=== PATIENT | male | born 1950 | race Caucasian/White ===

== ENCOUNTER → 2017-12-12 | Outpatient (CLI) | payer MEDICARE ==
[2017-12-12 08:43] LABS: BASO # 0.1 (0.0-0.2); BASO % 0.5 % (0.0-2.0); EOS # 0.7 (0.0-0.7); EOS % 7.5 % (0-4.0); GRAN # 5.9 (1.4-6.5); GRAN % 61.9 % (42.2-75.2); HEMATOCRIT 37.6 % (42.0-52.0); HEMOGLOBIN 12.7 g/dl (13.5-18.0); LYMPH # 2.1 (1.2-3.4); LYMPH % 22.2 % (20.0-51.0); MEAN CELL VOLUME 93 fl (80.0-100.0); MEAN CORPUSCULAR HEMOGLOBIN 31 pg (27.0-31.0); MEAN CORPUSCULAR HGB CONC 34 g/dl (33.0-37.0); MEAN PLATELET VOLUME 9.5 fl (7.4-10.4); MONO # 0.7 (0.1-0.6); MONO % 7.3 % (1.7-9.3); PLATELET COUNT 217 K/mm3 (130-400); RED BLOOD COUNT 4.06 M/mm3 (4.20-5.60); REDCELL DISTRIBUTION WIDTH-CV 13.3 % (11.5-14.5)
[2017-12-12 08:50] LABS: INR 0.9 (0.8-3.0); PROTHROMBIN TIME 10.1 SECONDS (9.7-12.8)
[2017-12-12 08:56] LABS: ALBUMIN 3.7 gm/dL (3.5-5.0); BILIRUBIN,TOTAL 0.5 mg/dL (0.0-1.0); CALCIUM 8.9 mg/dL (8.4-10.2); CREATININE, serum 2.29 mg/dL (0.66-1.25); POTASSIUM 5.1 mmol/L (3.4-5.0); TOTAL PROTEIN 7.3 gm/dL (6.4-8.2)
[2017-12-12 23:38] LABS: HEPATITIS B SURFACE ANTIBODY 2.6 (()); HEPATITIS B SURFACE ANTIGEN Negative (Negative)
[2017-12-14 19:41] LABS: ALPHA 1 ANTITRYPSIN TOTAL 145 mg/dL (())
== END ==
LOC: COL.RAD 07:42
PROVIDERS: Physician Assistant
DX: B19.20 Unspecified viral hepatitis C without hepatic coma (principal); E11.00 Type 2 diabetes mellitus with hyperosmolarity without nonketotic hyperglycemic-hyperosmolar coma (NKHHC); N28.1 Cyst of kidney, acquired; Z79.4 Long term (current) use of insulin

== ENCOUNTER 2018-04-26 07:24 | Outpatient (CLI) | payer MEDICARE ==
[~2018-04-26] VITALS: Ht 175.3 cm; Wt 75.0 kg
[2018-04-26] VITALS (37 sets, daily range): BP systolic 128–184; BP diastolic 71–103; PULSE 67–90; TEMP 97.5
[2018-04-26 08:22] LABS: BASO # 0.1 (0.0-0.2); BASO % 0.7 % (0.0-2.0); EOS # 0.5 (0.0-0.7); EOS % 6.9 % (0-4.0); GRAN # 4.4 (1.4-6.5); GRAN % 62.2 % (42.2-75.2); HEMATOCRIT 38.5 % (42.0-52.0); LYMPH # 1.4 (1.2-3.4); LYMPH % 19.2 % (20.0-51.0); MEAN CELL VOLUME 95 fl (80.0-100.0); MEAN CORPUSCULAR HEMOGLOBIN 32 pg (27.0-31.0); MEAN CORPUSCULAR HGB CONC 34 g/dl (33.0-37.0); MONO # 0.8 (0.1-0.6); MONO % 10.6 % (1.7-9.3); PLATELET COUNT 178 K/mm3 (130-400); RED BLOOD COUNT 4.07 M/mm3 (4.20-5.60); REDCELL DISTRIBUTION WIDTH-CV 13.4 % (11.5-14.5)
[2018-04-26] MEDS ORDERED: PRINIVIL20 MG PO (08:41)
[2018-04-26 08:42] LABS: INR 0.9 (0.8-3.0)
[2018-04-26] MEDS ORDERED: NORVASC 5MG5 MG/TAB PO (08:56)
[2018-04-26] MEDS ORDERED: ASPIRIN 32325 MG/TAB PO (08:57)
[2018-04-26] MEDS ORDERED: COREG12.5 MG PO (08:58)
[2018-04-26] MEDS ORDERED: [UNRECOGNIZED DRUG - OTHER] TOP (08:59)
[2018-04-26] MEDS ORDERED: HARVONI PO (09:02)
[2018-04-26] MEDS ORDERED: NOVOLIN 70/30 710 ML SQ (09:03)
== END 2018-04-26 18:23 | disposition home or self-care (01) ==
LOC: COL.RAD 07:24
PROVIDERS: Radiology Diagnostic Radiology
DX: N17.9 Acute kidney failure, unspecified (principal); N04.9 Nephrotic syndrome with unspecified morphologic changes
CPT/HCPCS: J0360; J2250; J3010

== ENCOUNTER → 2019-11-04 | Outpatient (CLI) | payer MEDICARE ==
[~2019-11-04] MED LIST: ASPIRIN 32325 MG/TAB PO; BENADRYL25 M2 PO; COREG12.5 MG PO; DEBROX OT; DULCOLAX S10 MG/SUPP RC; EUCERIN1 CRE TOP; HARVONI PO; IMODIUM 2MG CAPS2 MG PO; MILK OF MA400 MG/52 PO; NICODERM C14 MG/PATC TD; NORCO 325 MG-51 TAB PO; NORVASC 5MG5 MG/TAB PO; NOVOLIN 70/30 710 ML SQ; PRINIVIL20 MG PO; PROTONIX 40MG T40 MG PO; TYLENOL 325MG325 MG PO; TYLENOL SU650 MG/SUP RC; VANCOCIN H125 MG/CAP PO; [UNRECOGNIZED DRUG - OTHER] TOP
[2019-11-04 11:04] LABS: BASO # 0.1 (0.0-0.2); BASO % 1.1 % (0.0-2.0); EOS # 1.3 (0.0-0.7); EOS % 12.7 % (0-4.0); GRAN # 6.4 (1.4-6.5); GRAN % 64.7 % (42.2-75.2); LYMPH # 1.2 (1.2-3.4); LYMPH % 12.1 % (20.0-51.0); MEAN CELL VOLUME 103 fl (80.0-100.0); MEAN CORPUSCULAR HGB CONC 32 g/dl (33.0-37.0); MEAN PLATELET VOLUME 10.8 fl (7.4-10.4); MONO # 0.9 (0.1-0.6); MONO % 8.8 % (1.7-9.3); PLATELET COUNT 292 K/mm3 (130-400); REDCELL DISTRIBUTION WIDTH-CV 14.6 % (11.5-14.5)
[2019-11-04 11:09] LABS: CALCIUM 8.7 mg/dL (8.4-10.2); CREATININE, serum 2.8 (0.66-1.25); POTASSIUM 4.3 mmol/L (3.4-5.0)
[2019-11-04 11:17] LABS: HEMATOCRIT 30.8 % (42.0-52.0); HEMOGLOBIN 9.9 g/dl (13.5-18.0); MEAN CORPUSCULAR HEMOGLOBIN 33 pg (27.0-31.0)
== END ==
LOC: ZCOL.LAB 09:32
PROVIDERS: Internal Medicine
DX: N18.5 Chronic kidney disease, stage 5 (principal)

== ENCOUNTER 2019-11-05 09:04 | Day surgery (SDC) | payer MEDICARE ==
[~2019-11-05] VITALS: Ht 175.3 cm; Wt 64.1 kg
[~2019-11-05 09:04] MED LIST changes: -DEBROX OT; -DULCOLAX S10 MG/SUPP RC; -EUCERIN1 CRE TOP; -IMODIUM 2MG CAPS2 MG PO; -MILK OF MA400 MG/52 PO; -TYLENOL 325MG325 MG PO; -TYLENOL SU650 MG/SUP RC
[2019-11-05 09:27] VITALS: BP 160/84; PULSE 74; TEMP 98.8
[2019-11-05] MEDS ORDERED: TYLENOL SU650 MG/SUP RC (10:00)
[2019-11-05] MEDS ORDERED: DULCOLAX S10 MG/SUPP RC (10:01)
[2019-11-05] MEDS ORDERED: BENADRYL25 M2 PO (10:01)
[2019-11-05] MEDS ORDERED: DEBROX OT (10:09)
[2019-11-05] MEDS ORDERED: EUCERIN1 CRE TOP (10:10)
[2019-11-05] MEDS ORDERED: IMODIUM 2MG CAPS2 MG PO (10:11)
[2019-11-05] MEDS ORDERED: NICODERM C14 MG/PATC TD (10:11)
[2019-11-05] MEDS ORDERED: MILK OF MA400 MG/52 PO (10:11)
[2019-11-05] MEDS ORDERED: NORCO 325 MG-51 TAB PO (10:13)
[2019-11-05] MEDS ORDERED: PROTONIX 40MG T40 MG PO (10:14)
[2019-11-05] MEDS ORDERED: TYLENOL 325MG325 MG PO (10:14)
[2019-11-05] MEDS ORDERED: VANCOCIN H125 MG/CAP PO (10:15)
--- NOTE | 2019-11-05 10:35 | NUR ---
The patient ambulated to the bathroom with the stand by assistance of one nurse and appeared to tolerate the activity well. The nurse assisted the patient to get cleaned up and changed his depends at this time. The patient then ambulated back to the bathroom and appeared to tolerate the activity well. The patient was given some fresh warm blankets and asked for the head of his bed to be elevated more at this time. Call light is within reach. Will continue to monitor the patient.
--- NOTE | 2019-11-05 11:38 | NUR ---
Lab is at the patient's bedside drawing blood for the stat labs as ordered. The patient states he is "feeling a little better". The patient's oxygen saturation is currently 93% onn 3L of oxygen per nasal cannula. Call light remains within reach. Will continue to monitor the patient.
[2019-11-05 11:46] LABS: BASO # 0.1 (0.0-0.2); BASO % 0.9 % (0.0-2.0); EOS % 10.8 % (0-4.0); GRAN # 6.2 (1.4-6.5); GRAN % 66.7 % (42.2-75.2); LYMPH # 1.1 (1.2-3.4); MEAN CELL VOLUME 102 fl (80.0-100.0); MEAN CORPUSCULAR HGB CONC 32 g/dl (33.0-37.0); MEAN PLATELET VOLUME 10.3 fl (7.4-10.4); MONO # 0.9 (0.1-0.6); MONO % 9.2 % (1.7-9.3); PLATELET COUNT 248 K/mm3 (130-400); RED BLOOD COUNT 2.67 M/mm3 (4.20-5.60); REDCELL DISTRIBUTION WIDTH-CV 14.1 % (11.5-14.5)
[2019-11-05 11:50] LABS: HEMATOCRIT 27.3 % (42.0-52.0); HEMOGLOBIN 8.7 g/dl (13.5-18.0); MEAN CORPUSCULAR HEMOGLOBIN 33 pg (27.0-31.0)
[2019-11-05 11:58] LABS: CREATININE, serum 3.06 (0.66-1.25); POTASSIUM 3.9 mmol/L (3.4-5.0)
[2019-11-05 13:06] VITALS: BP 143/83; PULSE 79; TEMP 97.8
--- NOTE | 2019-11-05 13:06 | NUR ---
The patient arrived back to [facility] [facility] from the operating room at this time. The patient appears alert and oriented and denies any pain or nausea at this time. The patient's post operative vital signs were started at this time. The patient has oxygen in place at 3L per nasal cannula. The patient's dressing appears clean, dry and intact. The patient requests to try some cranberry juice at this time. Call light is within reach. Will continue to monitor the patient.
[2019-11-05 13:21] VITALS: BP 153/69; PULSE 84
--- NOTE | 2019-11-05 13:21 | NUR ---
The patient appears to be tolerating the juice well and denies wanting anything further to eat or drink at this time. Vital signs appear stable. The patient's oxygen was turned down to 2L per nasal cannula. Will continue to monitor the patient.
[2019-11-05 13:36] VITALS: BP 146/83; PULSE 82
--- NOTE | 2019-11-05 13:36 | NUR ---
The patient appears to be tolerating the juice well. The patient continues to deny wanting anything further to eat or drink at this time. Vital signs appear stable. Will continue to monitor the patient.
[2019-11-05 13:51] VITALS: BP 145/85; PULSE 83
--- NOTE | 2019-11-05 13:51 | NUR ---
The patient verbalizes "feeling better" and is ready to go back to the [facility].
--- NOTE | 2019-11-05 14:06 | NUR ---
Report was called to Izabel, the nurse at [facility] who will be assuming the care of the patient. She verbalized understanding and has no questions for the nurse at this time. The patient is to be transferred with the INT to his left forearm in place. Will continue to monitor the patient.
--- NOTE | 2019-11-05 14:10 | NUR ---
The nurse assisted the patient to get dressed at this time and he appeared to tolerate the activity well. The nurse assisted the patient to get from the cart to the wheelchair. The patient's transfer paperwork was sent with him.
--- NOTE | 2019-11-05 14:20 | NUR ---
The patient was escorted out via wheelchair to the transportation vehicle from [facility] at this time. The bus transportation manager, Glenn, is present to transport the patient back to their facility. The patient's belongings and transfer paperwork were sent with him.
== END 2019-11-05 14:20 | disposition home or self-care (01) ==
LOC: SDCO 09:04
PROVIDERS: Surgery
DX: E11.22 Type 2 diabetes mellitus with diabetic chronic kidney disease (principal); I13.0 Hypertensive heart and chronic kidney disease with heart failure and stage 1 through stage 4 chronic kidney disease, or unspecified chronic kidney disease; N18.9 Chronic kidney disease, unspecified; I50.9 Heart failure, unspecified; N17.9 Acute kidney failure, unspecified; J44.9 Chronic obstructive pulmonary disease, unspecified; R06.01 Orthopnea; I25.10 Atherosclerotic heart disease of native coronary artery without angina pectoris; D64.9 Anemia, unspecified; E78.5 Hyperlipidemia, unspecified; Z95.5 Presence of coronary angioplasty implant and graft; Z87.891 Personal history of nicotine dependence; Z79.899 Other long term (current) drug therapy; Z79.82 Long term (current) use of aspirin; Z86.19 Personal history of other infectious and parasitic diseases; Z99.2 Dependence on renal dialysis
CPT/HCPCS: C1750; J1644; J2704; J3010; J7030

== ENCOUNTER 2020-02-13 11:37 | Day surgery (SDC) | payer MEDICARE ==
[~2020-02-13] VITALS: Ht 175.3 cm; Wt 62.7 kg
[~2020-02-13 11:37] MED LIST changes: +DEBROX OT; +DULCOLAX S10 MG/SUPP RC; +EUCERIN1 CRE TOP; +IMODIUM 2MG CAPS2 MG PO; +MILK OF MA400 MG/52 PO; +TYLENOL 325MG325 MG PO; +TYLENOL SU650 MG/SUP RC
[2020-02-13 13:01] VITALS: BP 146/67; PULSE 62; TEMP 97.8
[2020-02-13] MEDS ORDERED: NORVASC 5MG5 MG/TAB PO (13:12)
[2020-02-13] MEDS ORDERED: ASPIRIN 32325 MG/TA1 PO (13:13)
[2020-02-13] MEDS ORDERED: EMU OIL 1 ML1 ML (13:14)
[2020-02-13] MEDS ORDERED: LASIX 80MG TABL80 MG PO (13:15)
[2020-02-13] MEDS ORDERED: ATARAX 25MG25 MG/TAB PO (13:17)
[2020-02-13] MEDS ORDERED: ZAROXOLYN 2.52.5 MG PO (13:18)
[2020-02-13] MEDS ORDERED: FLOMAX 0.40.4 MG/CAP PO (13:18)
[2020-02-13] MEDS ORDERED: VITAMIN B COMPL1 SGL PO (13:19)
--- NOTE | 2020-02-13 14:05 | NUR ---
Pt taken via cart to OR by Migdalia, BONDACTOR MACHINE OPERATOR who will care for patient during surgery.
[2020-02-13] MEDS ORDERED: NORCO 325 MG-51 TAB PO (16:27)
[2020-02-13 16:35] VITALS: BP 112/61; PULSE 62; TEMP 97.6
--- NOTE | 2020-02-13 16:35 | NUR ---
TO RM 6 PER CART FROM PACU. ALERT ORIENTED X3, TALKING WITH STAFF. THRILL FELT OVER SITE ON L LOWER ARM. NO DRAINAGE NOTED. CLEAR DRESSING OVER SITE CLEAN DRY INTACT. DENIES PAIN OR DISCOMFORT DENIES NAUSEA OR VOMITING.
[2020-02-13 16:50] VITALS: BP 146/67; PULSE 63
--- NOTE | 2020-02-13 16:50 | NUR ---
ABLE TO MOVE ALL FINGERS. NO SWELLING IN LEFT HAND WARM TO TOUCH RECEIVED CRANBERRY JUICE AND EATING GRAPES HE BROUGHT FOR HIMSELF. 02 SAT 93% AT REST. WHEN INSTRUCTED TO TAKE DEEP BREATHS SATS 95-96%. PATIENT ASKING WHEN HE CAN GO HOME.
[2020-02-13 17:05] VITALS: BP 123/64; PULSE 63
--- NOTE | 2020-02-13 17:05 | NUR ---
ATE 100% AND TOLERATED WELL.
--- NOTE | 2020-02-13 17:20 | NUR ---
AMBULATED TO BATHROOM USING CANE AND MINIMAL ASSIST. VOIDED AND AMBULATED BACK TO . CALLED HIS BROTHER IN LAW FOR RIDE. RECEIVED DISCHARGE INSTRUCTIONS AND VERBALIZED UNDERSTANDING. DICONTINUED IV AND INT- CATHETER INTACT. PATIENT GETTING DRESSED.
--- NOTE | 2020-02-13 18:00 | NUR ---
DISCHARGED PER WC BY NURSING STAFF TO PRIVATE CAR IN CARE OF HIS BROHTER IN LAW.
== END 2020-02-13 18:07 | disposition home or self-care (01) ==
LOC: SDCO 11:37
DX: E11.22 Type 2 diabetes mellitus with diabetic chronic kidney disease (principal); I13.2 Hypertensive heart and chronic kidney disease with heart failure and with stage 5 chronic kidney disease, or end stage renal disease; N18.6 End stage renal disease; I25.10 Atherosclerotic heart disease of native coronary artery without angina pectoris; E11.42 Type 2 diabetes mellitus with diabetic polyneuropathy; E78.5 Hyperlipidemia, unspecified; Z87.891 Personal history of nicotine dependence; E11.9 Type 2 diabetes mellitus without complications; Z99.2 Dependence on renal dialysis; J44.9 Chronic obstructive pulmonary disease, unspecified; M19.90 Unspecified osteoarthritis, unspecified site; D63.1 Anemia in chronic kidney disease
CPT/HCPCS: J1644; J2250; J2704; J7030

== ENCOUNTER → 2020-05-26 | Outpatient (CLI) | payer MEDICARE ==
[~2020-05-26] MED LIST changes: +ASPIRIN 32325 MG/TA1 PO; +ATARAX 25MG25 MG/TAB PO; +ATIVAN 1MG T1 MG/TAB PO; +B COMPLEX #11 TA1 PO; +CEPHALEXIN500 M1 PO; +COMPAZINE25 MG/SUPP RC; +EMU OIL 1 ML1 ML; +FLOMAX 0.40.4 MG/CAP PO; +LASIX 80MG TABL80 MG PO; +REGLAN 5MG T5 MG/TAB PO; +ROXANOL 20MG20 MG/ML SL; +TYLENOL 500MG500 MG PO; +VITAMIN B COMPL1 SGL PO; +ZAROXOLYN 2.52.5 MG PO; +ZOLOFT 50MG50 MG PO
== END ==
LOC: COL.VAS 05-19 08:45
DX: M79.89 Other specified soft tissue disorders (principal); Z98.890 Other specified postprocedural states

== ENCOUNTER 2020-06-25 10:13 | Day surgery (SDC) | payer MEDICARE ==
[~2020-06-25] VITALS: Ht 175.3 cm; Wt 63.9 kg
[~2020-06-25 10:13] MED LIST changes: -ATIVAN 1MG T1 MG/TAB PO; -B COMPLEX #11 TA1 PO; -CEPHALEXIN500 M1 PO; -COMPAZINE25 MG/SUPP RC; -REGLAN 5MG T5 MG/TAB PO; -ROXANOL 20MG20 MG/ML SL; -TYLENOL 500MG500 MG PO; -ZOLOFT 50MG50 MG PO
[2020-06-25 10:58] VITALS: BP 149/72; PULSE 73; TEMP 97.9
[2020-06-25] MEDS ORDERED: ZOLOFT 50MG50 MG PO (11:19)
[2020-06-25] MEDS ORDERED: REGLAN 5MG T5 MG/TAB PO (11:21)
[2020-06-25] MEDS ORDERED: EMU OIL 1 ML1 ML (11:23)
[2020-06-25] MEDS ORDERED: NORCO 325 MG-51 TAB PO ×3 (11:26→14:32)
[2020-06-25 13:59] VITALS: BP 154/80; PULSE 83; TEMP 97.6
--- NOTE | 2020-06-25 13:59 | NUR ---
TO RM 7 PER CART FROM OR. ALERT ORIENTED X3, TALKING TO STAFF. DENIES PAIN OR DISCOMFORT. DRESSING ON L UPPER CHEST PEA SIZED DRAINAGE. DRESSING OVER NEW DIALYSIS SITE CLEAN DRY INTACT LEFT ARM STILL EDEMATOUS.
[2020-06-25 14:15] VITALS: BP 153/78; PULSE 83
--- NOTE | 2020-06-25 14:15 | NUR ---
RECEIVED WATER AND TAKING SIPS.
[2020-06-25 14:30] VITALS: BP 151/77; PULSE 80
--- NOTE | 2020-06-25 14:30 | NUR ---
PATIENT TOOK OUT OWN COOKIES FROM BAG TO EAT.
[2020-06-25 14:45] VITALS: BP 162/77; PULSE 77
--- NOTE | 2020-06-25 14:45 | NUR ---
DISCONTINUED IV AND INT. AMBULATED TO BATHROOM AND VOIDED. AMBULATED BACK TO BED AND TOLERATED WELL. PATIENT CALLED [facility].
--- NOTE | 2020-06-25 15:10 | NUR ---
RECEIVED DISCHARGE INSTRUCTIONS AND VERBALIZED UNDERSTANDING.
--- NOTE | 2020-06-25 15:50 | NUR ---
DISCHARGED PER WC BY NURSING STAFF TO [facility] TO TAKE PATIENT HOME.
== END 2020-06-25 16:07 | disposition home or self-care (01) ==
LOC: SDCO 10:13
DX: Z49.02 Encounter for fitting and adjustment of peritoneal dialysis catheter (principal); E11.22 Type 2 diabetes mellitus with diabetic chronic kidney disease; I12.0 Hypertensive chronic kidney disease with stage 5 chronic kidney disease or end stage renal disease; N18.6 End stage renal disease; E78.5 Hyperlipidemia, unspecified; I25.10 Atherosclerotic heart disease of native coronary artery without angina pectoris; K21.9 Gastro-esophageal reflux disease without esophagitis; F17.210 Nicotine dependence, cigarettes, uncomplicated; Z20.822 Contact with and (suspected) exposure to COVID-19; Z79.899 Other long term (current) drug therapy; Z95.828 Presence of other vascular implants and grafts
CPT/HCPCS: J0690; J1644; J2704; J7030

== ENCOUNTER 2020-08-03 11:41 | Outpatient (CLI) | payer MEDICARE ==
[~2020-08-03] VITALS: Ht 175.3 cm; Wt 62.6 kg
[~2020-08-03 11:41] MED LIST changes: +REGLAN 5MG T5 MG/TAB PO; +ZOLOFT 50MG50 MG PO
[2020-08-03 12:23] VITALS: BP 151/80; PULSE 85; TEMP 97.9
[2020-08-03] MEDS ORDERED: B COMPLEX #11 TA1 PO (12:23)
[2020-08-03 14:18] VITALS: BP 135/77; PULSE 78
[2020-08-03 15:30] VITALS: BP 140/81; PULSE 80
--- NOTE | 2020-08-03 15:30 | NUR ---
REport from [facility]. No intervention done on pt. VSS. Bandaid to left forearm fistula site.
[2020-08-03 15:45] VITALS: BP 138/90; PULSE 84
[2020-08-03 16:00] VITALS: BP 145/84; PULSE 91
[2020-08-03 16:15] VITALS: BP 149/88; PULSE 82
--- NOTE | 2020-08-03 16:15 | NUR ---
INT discontinued. [facility]
== END 2020-08-03 16:22 | disposition home or self-care (01) ==
LOC: COL.CAR 11:41
DX: T82.7XXA Infection and inflammatory reaction due to other cardiac and vascular devices, implants and grafts, initial encounter (principal); I13.11 Hypertensive heart and chronic kidney disease without heart failure, with stage 5 chronic kidney disease, or end stage renal disease; N18.6 End stage renal disease; F17.210 Nicotine dependence, cigarettes, uncomplicated; Z99.2 Dependence on renal dialysis; Z79.891 Long term (current) use of opiate analgesic; Z79.899 Other long term (current) drug therapy
CPT/HCPCS: C1769; C1887; J1644; J2250; J3010; Q9967

== ENCOUNTER 2020-09-22 11:43 | Emergency (ER) | payer MEDICARE ==
[~2020-09-22] VITALS: Ht 175.3 cm; Wt 50.0 kg
[~2020-09-22 11:43] MED LIST changes: +B COMPLEX #11 TA1 PO
[2020-09-22 11:44] VITALS: TEMP 97.8
[2020-09-22 12:26] LABS: BASO % 0.2 % (0.0-2.0); EOS # 0.1 (0.0-0.7); EOS % 0.7 % (0-4.0); GRAN # 8.6 (1.4-6.5); GRAN % 81.9 % (42.2-75.2); HEMATOCRIT 37.7 % (42.0-52.0); HEMOGLOBIN 12.2 g/dl (13.5-18.0); LYMPH % 9.5 % (20.0-51.0); MEAN CELL VOLUME 100 fl (80.0-100.0); MEAN CORPUSCULAR HEMOGLOBIN 32 pg (27.0-31.0); MEAN CORPUSCULAR HGB CONC 32 g/dl (33.0-37.0); MEAN PLATELET VOLUME 9.5 fl (7.4-10.4); MONO # 0.8 (0.1-0.6); MONO % 7.3 % (1.7-9.3); PLATELET COUNT 210 K/mm3 (130-400); RED BLOOD COUNT 3.79 M/mm3 (4.20-5.60); REDCELL DISTRIBUTION WIDTH-CV 15.6 % (11.5-14.5)
[2020-09-22 12:38] LABS: ALANINE AMINOTRANSFERASE 16 U/L (4-49); ALBUMIN 2.3 gm/dL (3.5-5.0); ALKALINE PHOSPHATASE 172 U/L (50-136); ANION GAP 12 mmol/L (7-16); AST,SGOT 30 U/L (15-37); BILIRUBIN,TOTAL 0.3 mg/dL (0.0-1.0); BLOOD UREA NITROGEN 41 mg/dL (9-20); CALCIUM 7.3 mg/dL (8.4-10.2); CARBON DIOXIDE 18 mmol/L (22-30); CHLORIDE 103 mmol/L (98-107); CREATININE, serum 4.22 (0.66-1.25); GLUCOSE 105 mg/dL (74-106); POTASSIUM 3.1 mmol/L (3.4-5.0); SODIUM 132 mmol/L (137-145); TOTAL PROTEIN 5.4 gm/dL (6.4-8.2)
[2020-09-22 12:51] LABS: TROPONIN-I < 0.012 ng/mL (0.000-0.035)
[2020-09-22] MEDS ORDERED: CEPHALEXIN500 M1 PO (13:56)
[2020-09-22 14:01] VITALS: BP 130/81; PULSE 84
== END 2020-09-22 14:34 | disposition home or self-care (01) ==
LOC: COL.ER 11:43
PROVIDERS: Student in an Organized Health Care Education/Training Program
DX: L03.114 Cellulitis of left upper limb (principal); I95.9 Hypotension, unspecified; E11.22 Type 2 diabetes mellitus with diabetic chronic kidney disease; N18.6 End stage renal disease; I50.9 Heart failure, unspecified; Z99.2 Dependence on renal dialysis; Z79.899 Other long term (current) drug therapy; F17.210 Nicotine dependence, cigarettes, uncomplicated

== ENCOUNTER 2020-10-06 14:51 | Inpatient (IN) | payer MEDICARE ==
[~2020-10-06] VITALS: Ht 175.3 cm; Wt 59.3 kg
[~2020-10-06 14:51] MED LIST changes: +CEPHALEXIN500 M1 PO
[2020-10-06 15:36] LABS: BASO % 0.2 % (0.0-2.0); EOS # 0.1 (0.0-0.7); EOS % 0.7 % (0-4.0); GRAN # 8.5 (1.4-6.5); GRAN % 82.2 % (42.2-75.2); LYMPH # 1.1 (1.2-3.4); LYMPH % 11.1 % (20.0-51.0); MEAN CELL VOLUME 100 fl (80.0-100.0); MEAN CORPUSCULAR HEMOGLOBIN 33 pg (27.0-31.0); MEAN CORPUSCULAR HGB CONC 33 g/dl (33.0-37.0); MEAN PLATELET VOLUME 10.5 fl (7.4-10.4); MONO # 0.6 (0.1-0.6); MONO % 5.4 % (1.7-9.3); PLATELET COUNT 196 K/mm3 (130-400); RED BLOOD COUNT 3.31 M/mm3 (4.20-5.60); REDCELL DISTRIBUTION WIDTH-CV 17.3 % (11.5-14.5)
[2020-10-06 15:43] LABS: HEMATOCRIT 33.2 % (42.0-52.0)
[2020-10-06 15:46] LABS: BILIRUBIN,TOTAL 0.2 mg/dL (0.0-1.0); C-REACTIVE PROTEIN 3.7 mg/dL (0.0-0.9); CALCIUM 7.3 mg/dL (8.4-10.2); CREATININE, serum 3.49 (0.66-1.25); POTASSIUM 3.2 mmol/L (3.4-5.0); TOTAL PROTEIN 4.7 gm/dL (6.4-8.2)
[2020-10-06 16:05] LABS: TROPONIN-I 0.012 ng/mL (0.000-0.035)
[2020-10-06 18:18] VITALS: BP 97/52; PULSE 116; TEMP 97.5
[2020-10-06] MEDS ORDERED: TYLENOL 500MG500 MG PO (18:35)
[2020-10-06 20:15] VITALS: BP 98/75; PULSE 130; TEMP 97.5
--- NOTE | 2020-10-06 20:24 | NUR ---
Projectlizeth vomitted approx 350mls undigested food. States he has this happen about two hours after every meal. Zofran given per dr order. Will hold off on giving any PO medications at this time. Patient states he will just throw them up. States is having pain in his back-rating 7/10 on pain scale-described as constant ache. States the pain is better now compared to this am.
--- NOTE | 2020-10-06 21:25 | NUR ---
Patient called stating he had more emesis. Noted to have 150mls of dark red output. Dr Gomez notified-new orders received and initiated. K pad heat pad given for stiffness in neck and shoulders. Will continue to monitor.
--- NOTE | 2020-10-06 23:00 | NUR ---
Resting in bed eye closed. No s/s of pain or discomfort noted. Will continue to monitor.
[2020-10-07] VITALS (10 sets, daily range): BP systolic 91–113; BP diastolic 49–75; PULSE 87–118; TEMP 97.5–98.2
--- NOTE | 2020-10-07 05:25 | NUR ---
Has rested well since receiving nausea medications earlier in shift. K pad controlled pain well. No more emesis/diarrhea. Still need a stool specimen to r/o c diff as well as urine. Received NS@75ml/hr [id number]. Still noted to have soft blood pressures. NO s/s of distress noted at this time. Resing with eyes closed. Call light in reach. Will monitor.
--- NOTE | 2020-10-07 06:35 | NUR ---
Dr Pulido notified of consult. New orders to make NPO.
[2020-10-07 07:34] LABS: BASO % 0.1 % (0.0-2.0); EOS # 0.1 (0.0-0.7); EOS % 0.4 % (0-4.0); GRAN # 11.7 (1.4-6.5); GRAN % 81.1 % (42.2-75.2); LYMPH # 1.8 (1.2-3.4); LYMPH % 12.6 % (20.0-51.0); MEAN CELL VOLUME 98 fl (80.0-100.0); MEAN CORPUSCULAR HGB CONC 33 g/dl (33.0-37.0); MEAN PLATELET VOLUME 10.5 fl (7.4-10.4); MONO # 0.7 (0.1-0.6); PLATELET COUNT 183 K/mm3 (130-400); RED BLOOD COUNT 2.24 M/mm3 (4.20-5.60); REDCELL DISTRIBUTION WIDTH-CV 17.3 % (11.5-14.5)
[2020-10-07 07:39] LABS: HEMOGLOBIN 7.3 g/dl (13.5-18.0); MEAN CORPUSCULAR HEMOGLOBIN 33 pg (27.0-31.0)
[2020-10-07 07:40] LABS: HEMATOCRIT 21.9 % (42.0-52.0)
[2020-10-07 07:53] LABS: ALBUMIN 1.7 gm/dL (3.5-5.0); CALCIUM 6.9 mg/dL (8.4-10.2); CREATININE, serum 3.68 (0.66-1.25); PHOSPHOROUS 2.3 mg/dL (2.5-4.5); POTASSIUM 3.7 mmol/L (3.4-5.0)
[2020-10-07 11:41] LABS: HEMATOCRIT 24.7 % (42.0-52.0)
[2020-10-07 11:42] LABS: IRON,SERUM 573 ug/dL (35-150)
[2020-10-07 11:52] LABS: TOTAL IRON BINDING CAPACITY 74 ug/dL (261-462)
[2020-10-07 13:43] LABS: CLOSTRIDIUM DIFF A/B NEG; CLOSTRIDIUM DIFF A/B INTERP No C.diff present
--- NOTE | 2020-10-07 13:47 | NUR ---
PATIENT TOLERATED A 2 HOUR HD TX TODAY WITH NO FLUID REMOVAL DUE TO HYPOTENSION & TACHYCARDIA. PATIENT GIVEN 1.6 L OF FLUID DURING TX. NEXT PLANNED HD TX PENDING LABS.
[2020-10-07 20:24] LABS: HEMATOCRIT 33.6 % (42.0-52.0); HEMOGLOBIN 11.1 g/dl (13.5-18.0)
[2020-10-08 00:10] VITALS: BP 88/60; PULSE 70; TEMP 98.3
[2020-10-08 04:16] VITALS: BP 111/61; PULSE 103; TEMP 97.7
[2020-10-08 06:37] LABS: BASO % 0.2 % (0.0-2.0); EOS # 0.1 (0.0-0.7); EOS % 0.5 % (0-4.0); GRAN # 9.1 (1.4-6.5); GRAN % 87.2 % (42.2-75.2); LYMPH # 0.8 (1.2-3.4); LYMPH % 7.2 % (20.0-51.0); MEAN CELL VOLUME 97 fl (80.0-100.0); MEAN CORPUSCULAR HEMOGLOBIN 32 pg (27.0-31.0); MEAN CORPUSCULAR HGB CONC 33 g/dl (33.0-37.0); MEAN PLATELET VOLUME 10.3 fl (7.4-10.4); MONO # 0.5 (0.1-0.6); MONO % 4.3 % (1.7-9.3); PLATELET COUNT 138 K/mm3 (130-400); RED BLOOD COUNT 3.43 M/mm3 (4.20-5.60); REDCELL DISTRIBUTION WIDTH-CV 18.7 % (11.5-14.5)
[2020-10-08 06:38] LABS: ALBUMIN 1.8 gm/dL (3.5-5.0); CALCIUM 7.3 mg/dL (8.4-10.2); CREATININE, serum 2.54 (0.66-1.25); HEMATOCRIT 33.1 % (42.0-52.0); PHOSPHOROUS 1.6 mg/dL (2.5-4.5); POTASSIUM 3.4 mmol/L (3.4-5.0)
--- NOTE | 2020-10-08 06:38 | NUR ---
Patient has had an uneventful night. He complained of generalized discomfort and Tylenol was provided. Left upper extremity is still red and edematous, which is unchanged from the past 2 days. No additional concerns noted overnight. Call light in reach. Patient still having black, tarry, incontinent stools.
--- NOTE | 2020-10-08 07:19 | NUR ---
RECEIVED REPORT FROM BLANCHE MARCH. PT AWAKE, RESTING IN BED. DENIES PAIN AT THIS TIME. NO OTHER NEEDS REQUESTED. CALL [facility] IN REACH.
--- NOTE | 2020-10-08 08:30 | NUR ---
PT COMPLAINED OF BACK PAIN RATED 7/10. TYLENOL ADMINISTERED PER PT REQUEST. WILL CONTINUE TO MONITOR. PT L ARM SWELLING MORE. ELEVATED ARM ON PILLOW AND APPLIED K-PAD.
[2020-10-08 09:18] VITALS: BP 96/61; PULSE 108; TEMP 98.3
--- NOTE | 2020-10-08 10:48 | NUR ---
PT LEFT ARM EDEMA SLIGHTLY DECREASED. PT STATED K-PAD IS HELPING. WILL CONTINUE TO MONITOR
--- NOTE | 2020-10-08 13:03 | NUR ---
PT WENT DOWN FOR CT SCAN
[2020-10-08 13:50] VITALS: BP 108/71; PULSE 98; TEMP 97.5
--- NOTE | 2020-10-08 13:59 | NUR ---
PT BACK FROM CT SCAN. RESTING IN BED. PT COMPLAINED OF BACK PAIN RATED 8/10. TYLENOL ADMINISTERED PER PT REQEUST.
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
[2020-10-08 17:58] VITALS: BP 98/62; PULSE 98; TEMP 97.5
--- NOTE | 2020-10-08 18:44 | NUR ---
PT WENT FOR CT SCAN TODAY. HAD CONTINUOUS LOWER BACK PAIN ALL DAY. TYLENOL ADMINISTERED FOR PAIN. OTHERWISE PT HAD UNEVENTFUL DAY. PT HAS NO NEEDS/CONCERNS AT THIS TIME. CALL [facility] IN REACH.
[2020-10-08 20:00] VITALS: BP 73/47; PULSE 96; TEMP 98.6
[2020-10-09] VITALS: BP 98/56; PULSE 98; TEMP 97.9
[2020-10-09 04:00] VITALS: BP 94/66; PULSE 112; TEMP 98.4
--- NOTE | 2020-10-09 07:20 | NUR ---
RECEIVED REPORT FROM BLANCHE MARCH. PT ASLEEP IN BED. BREATHING REGULAR/UNLABORED. CALL [facility] IN REACH.
[2020-10-09 07:54] LABS: ALBUMIN 1.8 gm/dL (3.5-5.0); CALCIUM 7.2 mg/dL (8.4-10.2); CREATININE, serum 3.08 (0.66-1.25); PHOSPHOROUS 1.5 mg/dL (2.5-4.5); POTASSIUM 3.3 mmol/L (3.4-5.0)
[2020-10-09 08:14] LABS: BASO % 0.2 % (0.0-2.0); EOS % 0.4 % (0-4.0); GRAN # 8.5 (1.4-6.5); GRAN % 85.6 % (42.2-75.2); HEMOGLOBIN 11.7 g/dl (13.5-18.0); LYMPH # 0.8 (1.2-3.4); LYMPH % 7.8 % (20.0-51.0); MEAN CELL VOLUME 96 fl (80.0-100.0); MEAN CORPUSCULAR HEMOGLOBIN 33 pg (27.0-31.0); MEAN CORPUSCULAR HGB CONC 34 g/dl (33.0-37.0); MEAN PLATELET VOLUME 10.8 fl (7.4-10.4); MONO # 0.5 (0.1-0.6); MONO % 5.2 % (1.7-9.3); PLATELET COUNT 133 K/mm3 (130-400); RED BLOOD COUNT 3.59 M/mm3 (4.20-5.60); REDCELL DISTRIBUTION WIDTH-CV 18.4 % (11.5-14.5)
[2020-10-09 08:24] VITALS: BP 100/59; PULSE 80; TEMP 98
[2020-10-09 08:32] LABS: HEMATOCRIT 34.3 % (42.0-52.0)
--- NOTE | 2020-10-09 09:49 | NUR ---
I met with Mr Nam this morning to talk about palliative care options including hospice. This patient shared part of his story with me and that he is questioning if he is wanting further treatment at all. We talked about locations for hospice services, what they would include as a covered cost, what it would mean that he would stop, including dialysis. The focus of his care on hospice would be comfort and quality of life where the other choices would involved working to get better and stronger. He will talk with family members that he chooses to be involved. I did offer to talk with him again or with family if they have further questions or need further information.
[2020-10-09 12:27] VITALS: BP 103/63; PULSE 106; TEMP 98.1
--- NOTE | 2020-10-09 12:36 | NUR ---
PT NPO FOR CT SCAN THIS AFTERNOON
--- NOTE | 2020-10-09 12:44 | NUR ---
PT WENT DOWN FOR CT SCAN.
--- NOTE | 2020-10-09 13:21 | NUR ---
PT RETURNED FROM CT. RESTING IN BED, CONVERSING WITH [employer] EMPLOYEE. DENIES ANY NEEDS AT THIS TIME. CALL [facility] IN REACH
--- NOTE | 2020-10-09 15:48 | NUR ---
Rani, at [facility], reports that they can tentatively follow pending bed availability early next week. SW faxed updates to [facility] and [facility].
--- NOTE | 2020-10-09 16:06 | NUR ---
Samson, at [facility], reports that the patient's chair time is T/Th/Sat and they are unable to to accomodate that chair time and are unable to accept.
[2020-10-09 16:08] VITALS: BP 99/59; PULSE 101; TEMP 98.1
--- NOTE | 2020-10-09 17:54 | NUR ---
PT WENT FOR CT TODAY. OTHERWISE, HAD UNEVENTFUL DAY. PT IS RESTING IN BED. HAS NO NEEDS/CONCERNS AT THIS TIME. CALL [facility] IN REACH
[2020-10-09 19:19] VITALS: BP 101/65; PULSE 98; TEMP 98.4
[2020-10-10 04:05] VITALS: BP 103/57; PULSE 109; TEMP 97.7
[2020-10-10 07:02] LABS: BASO % 0.3 % (0.0-2.0); EOS # 0.1 (0.0-0.7); EOS % 0.9 % (0-4.0); GRAN # 8.2 (1.4-6.5); GRAN % 83.5 % (42.2-75.2); HEMOGLOBIN 11.3 g/dl (13.5-18.0); LYMPH # 0.8 (1.2-3.4); MEAN CELL VOLUME 99 fl (80.0-100.0); MEAN CORPUSCULAR HEMOGLOBIN 32 pg (27.0-31.0); MEAN CORPUSCULAR HGB CONC 32 g/dl (33.0-37.0); MEAN PLATELET VOLUME 10.8 fl (7.4-10.4); MONO # 0.7 (0.1-0.6); MONO % 6.7 % (1.7-9.3); PLATELET COUNT 148 K/mm3 (130-400); RED BLOOD COUNT 3.52 M/mm3 (4.20-5.60); REDCELL DISTRIBUTION WIDTH-CV 18.8 % (11.5-14.5)
--- NOTE | 2020-10-10 07:09 | NUR ---
PATIENT SLEEPING IN BED. NO SIGNS OF DISTRESS. CONTACT [facility] FOR CDIFF.
[2020-10-10 07:15] LABS: ALBUMIN 1.8 gm/dL (3.5-5.0); CALCIUM 7.3 mg/dL (8.4-10.2); CREATININE, serum 3.73 (0.66-1.25)
[2020-10-10 08:14] VITALS: BP 100/67; PULSE 118; TEMP 97.8
--- NOTE | 2020-10-10 08:52 | NUR ---
PATIENT ASSESSMENT COMPLETED. HE IS EATING BREAKFAST IN BED. APPETITE IS GOOD THIS MORNING. HE REPORTS PAIN ALL OVER AT THIS TIME. OCCASSIONAL SHORTNESS OF BREATH. DENIES FURTHER NEEDS NO CHEST PAIN
[2020-10-10 12:10] VITALS: BP 121/89; PULSE 114; TEMP 97.8
--- NOTE | 2020-10-10 13:06 | NUR ---
PATIENT COMPLAINS OF BACK PAIN PRN NORCO HAS BEEN REORDERED AND WAS GIVEN PER OSCAR DIOR
--- NOTE | 2020-10-10 15:12 | NUR ---
PATIENT LAYING IN BED. FEELS BETTER AFTER TAKING NORCO. NO FURTHER NEEDS AT THIS TIME
[2020-10-10 17:01] VITALS: BP 111/68; PULSE 100; TEMP 98.5
--- NOTE | 2020-10-10 20:00 | NUR ---
Assessment complete. Patient is alert and oriented with complaints of generalized pain; PRN [place] administered. HR is slightly tachy and lungs are clear. Left arm is still red and edematous; fistula is present with audible bruit and palpable thrill. Patient looks malnurished but has a good appetite. He has been incontinent of a diarrhea BM; jesu care and linen change provided at this time. Comfort measures also provided and call light in reach.
[2020-10-10 20:35] VITALS: BP 120/81; PULSE 98; TEMP 98.3
[2020-10-11 03:53] VITALS: BP 116/78; PULSE 108
[2020-10-11 07:52] VITALS: BP 117/64; PULSE 112; TEMP 97.8
[2020-10-11 11:35] VITALS: BP 101/66; PULSE 96; TEMP 98.3
--- NOTE | 2020-10-11 12:42 | NUR ---
SW met with family and patient in room about care support. Patient reports that he has decided to go to the hospice house. [facility]. SW faxed forms and started transistion to Hospice Tomorrow or Monday. SW spoke with a nurse at the hospice house and reports that they only have a suites available. SW called ton cylinder inspector to start process. WIll update as soon as information is approved for transfer. PCP is Dr. Houston and Specialist is Dr. Gomez. Patient reports that he is no longer going to dialysis. Patient reports that he is okay with using EMS for transfer. Patient reports that his Nephew Hira Felipe is the DPOA at . Patient reports that he is able to signed his own PPW.
--- NOTE | 2020-10-11 14:06 | NUR ---
[facility] reports they can accept Monday Morning, What they have requested 1 CV test 2 Notification that Madhav Bragg will follow. 3 Patient's choose on private room at [address] or [address] per day. SW will talk with patient about choses. Contact at [facility] is Thalia and fax is .
--- NOTE | 2020-10-11 14:43 | NUR ---
Patient decided on the single room for 190. Transfer Monday, Transportation will need to be scheduled VIA EMS> Patient verbally agreed to the understand of billing ot his insurance.
[2020-10-11 16:54] VITALS: BP 110/67; PULSE 102; TEMP 97.7
--- NOTE | 2020-10-11 18:18 | NUR ---
PT NEEDS MET THIS DAY. PT EXPRESSES NO ADDITIONAL NEEDS. CALL LIGHT WITHIN REACH.
[2020-10-11 19:17] VITALS: BP 109/54; PULSE 102; TEMP 98.3
--- NOTE | 2020-10-11 21:05 | NUR ---
ALERT AND OX 4. RATING BACK PAIN 08/15, NORCO GIVEN. PM MEDS. IV RTFA FLUSHED INTACT, RT PORT CATH INTACT FLUSHED. LT WRIST FISTULA BLOCKAGE AND SWOLLEN ELEVATED UP ON PILLOW. LOOSE STOOLS DEPEND CHANGED. POC DISCUSSED. CALL LIGHT WI REACH, BED LOW POSITION. NEEDS MET.
[2020-10-11 23:46] VITALS: BP 113/73; PULSE 100; TEMP 97.7
[2020-10-12 03:50] VITALS: BP 118/77; PULSE 98; TEMP 97.9
--- NOTE | 2020-10-12 05:28 | NUR ---
PT SLEPT THROUGH THE NIGHT WITHOUT INCIDENT. NEEDS MET.
[2020-10-12 08:00] VITALS: BP 94/64; PULSE 100; TEMP 97.7
[2020-10-12 12:00] VITALS: BP 87/63; PULSE 108; TEMP 98.4
--- NOTE | 2020-10-12 12:34 | NUR ---
Rupesh spoke Dr. Gomez and he wanted to know if the pt could d/c today 10/12. Sw called [facility] and they informed no, they would like to stick to the plan. The pt also informed he would like to leave tomorrow as well. D/c Monday. 10/13
[2020-10-12 17:24] VITALS: BP 132/80; PULSE 97; TEMP 97.3
--- NOTE | 2020-10-12 18:19 | NUR ---
PT PROVIDED BATH BY THIS NURSE AND RAIL ASSEMBLER. PT EXPRESSSES NO ADDITIONAL NEEDS MET. ALL NEEDS MET. CALL LIGHT WITHIN REACH.
[2020-10-12 20:01] VITALS: BP 111/74; PULSE 92; TEMP 98.1
--- NOTE | 2020-10-12 20:43 | NUR ---
ALERT AND OX4. DENIES SOA, CHEST PAIN OR DIZZY. RATING LOWER BACK PAIN 08/15. NORCO GIVEN. PM MEDS. VITAL OBTAINED. POC DISCUSSED. BREIF CHANGED. VISITORS LATER THIS EVENING OK, PT WILL GO [facility]. NEEDS MET.
[2020-10-13 00:03] VITALS: BP 112/72; PULSE 102; TEMP 97.4
[2020-10-13 04:47] VITALS: BP 97/70; PULSE 104; TEMP 97.6
--- NOTE | 2020-10-13 05:09 | NUR ---
Rested through the night without incident. Needs met. Wendi EDWARDS today to [facility].
[2020-10-13 08:00] VITALS: BP 106/67; PULSE 100; TEMP 97.7
--- NOTE | 2020-10-13 10:28 | NUR ---
CARLOS contacted S[facility] and confirmed that they are able to accept the patient today and request a 1100 transport time and for his meds to be sent to [facility]. CARLOS notified Kiersten RN with Dr. Gomez of the above. The patient is to discharge today, 10/13, to the [facility]. Transportation was scheduled at 1100, via [facility]. CARLOS informed the patient, his RN, and his nephew/DPOA-HC (Hira) of the time. They were all agreeable to the time. CARLOS also presented and read the IM form out and EMS Transfer Consent form outloud to the patient. The patient verbalized understanding and gave SW approval to sign the form on his behalf. No additional needs at this time.
[2020-10-13] MEDS ORDERED: NORCO 325 MG-51 TAB PO (10:32)
[2020-10-13] MEDS ORDERED: TYLENOL SU650 MG/SUP RC (10:33)
[2020-10-13] MEDS ORDERED: ROXANOL 20MG20 MG/ML SL (10:33)
[2020-10-13] MEDS ORDERED: IMODIUM 2MG CAPS2 MG PO (10:34)
[2020-10-13] MEDS ORDERED: COMPAZINE25 MG/SUPP RC (10:34)
[2020-10-13] MEDS ORDERED: ATIVAN 1MG T1 MG/TAB PO (10:34)
== END 2020-10-13 11:16 | disposition hospice, home (50) | DRG 371 ==
LOC: COL.ER 14:51 → MEDICAL 16:24
PROVIDERS: Internal Medicine Gastroenterology; Nurse Practitioner; Nurse Practitioner Primary Care; ADMIT Internal Medicine Nephrology
PROC: 0DJ08ZZ Inspection of Upper Intestinal Tract, Via Natural or Artificial Opening Endoscopic (ICD-10-PCS; principal; 2020-10-07 10:30)
DX: A04.72 Enterocolitis due to Clostridium difficile, not specified as recurrent (principal); N18.6 End stage renal disease; E43 Unspecified severe protein-calorie malnutrition; I13.2 Hypertensive heart and chronic kidney disease with heart failure and with stage 5 chronic kidney disease, or end stage renal disease; C22.0 Liver cell carcinoma; Z68.1 Body mass index [BMI] 19.9 or less, adult; K92.1 Melena; K92.0 Hematemesis; D62 Acute posthemorrhagic anemia; K74.60 Unspecified cirrhosis of liver; I48.91 Unspecified atrial fibrillation; I95.9 Hypotension, unspecified; E11.22 Type 2 diabetes mellitus with diabetic chronic kidney disease; E11.65 Type 2 diabetes mellitus with hyperglycemia; I25.10 Atherosclerotic heart disease of native coronary artery without angina pectoris; F10.10 Alcohol abuse, uncomplicated; F17.210 Nicotine dependence, cigarettes, uncomplicated; Z20.822 Contact with and (suspected) exposure to COVID-19; Z51.5 Encounter for palliative care; Z66 Do not resuscitate; K21.00 Gastro-esophageal reflux disease with esophagitis, without bleeding; K26.9 Duodenal ulcer, unspecified as acute or chronic, without hemorrhage or perforation
CPT/HCPCS: C9113; J1644; J1756; J1956; J2405; J2765; J7030; P9016; Q5105; Q9967